=== PATIENT | male | born 1955 | race Caucasian/White ===

== ENCOUNTER 2024-01-12 09:45 | Observation (INO) ==
--- NOTE | 2024-01-10 10:01 | Anesthesiology Consultation ---
Date of Service January 10, 2024 Assessment & Plan (1) Encounter for pre-operative examination: Infectious disease screening: Per assessment on 01/02/24: No known recent infectious disease contacts or current infectious disease symptoms. Patient at [facility]. Will need preop Covid testing per protocol. Chart Review Chart Review: Acceptable Risk for Surgery and Patient NOT seen in Pre Admission Testing History Surgery Operation Date: 01/12/24 07:35 Proposed Procedures p Robotic Assisted Laparoscopic Radical Retropubic Prostatectomy, Possible Open, Possible Pelvic Lymph Node Dissection - Ruel Saravia, Height/Weight Height: 5 ft 11 in Weight: 72.121 kg Allergies Allergy/AdvReac Type Severity Reaction Status Date / Time No Known Drug Allergies Allergy Unknown Verified 01/02/24 14:32 Medications Home Medications Medication Instructions Recorded Confirmed Last Taken finasteride 5 mg tablet 5 mg PO DAILY 04/25/23 01/02/24 Unknown olanzapine 5 mg tablet 5 mg PO HS 04/25/23 01/02/24 Unknown oxcarbazepine 150 mg tablet 150 mg PO BID 04/25/23 01/02/24 Unknown paroxetine HCl 10 mg tablet 30 mg PO DAILY 04/25/23 01/02/24 Unknown tamsulosin 0.4 mg capsule 0.4 mg PO HS 04/25/23 01/02/24 Unknown leuprolide (pediatric 6 month) 45 45 mg IM UD 01/02/24 01/02/24 Unknown mg (pediatric 6 month) intramuscular syringe kit (Lupron Depot-Ped) Past Medical History Medical History Adjustment disorder with mixed anxiety and depressed mood Prostate cancer Past Family History Family History Father No problems noted. Mother Breast cancer Brother No problems noted. Sister No problems noted. Son No problems noted. 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 iRBBB. unconfirmed report. Chest X-Ray Date: 01/04/24 Old rib deformities on the left. No radiographic evidence of acute cardiopulmonary disease.
--- NOTE | 2024-01-12 09:53 | History & Physical Report ---
Date of Service January 12, 2024 Assessment & Plan (1) Prostate cancer: Plan Patient with prostate cancer. Found on biopsy. High volume disease. Patient has been evaluated by radiation oncology. Had discussed extensively different options. Reviewed extensively options for surgical intervention and recovery. Risks and benefits discussed at length for procedure. These include bleeding, infection, injury to surrounding tissues or organs, and risks associated with anesthesia. Patient states understanding and agrees to proceed. Will sign consent and proceed. Plan for Robot Assisted laparoscopic radical prostatectomy with bilateral pelvic lymph node dissection Likely need 1 to 2 days post op under observation. Will be looking at catheter for approximately 10 to 14 days after procedure. History of Present Illness Primary Care Provider: NICK Melara Patient here for procedure. No changes in medical issues. No major changes in urinary issues. Continued issues and concerns. No change in pain or discomfort. No severe fevers or chills. No chest pain or shortness of breath. Risks and benefits discussed at length for procedure. These include bleeding, infection, injury to surrounding tissues or organs, and risks associated with anesthesia. Patient and/or family states understanding and agrees to proceed. Consent and supporting information completed. Allergies Allergy/AdvReac Type Severity Reaction Status Date / Time No Known Drug Allergies Allergy Unknown Verified 01/02/24 14:32 Home Medications Medication Instructions Recorded Confirmed Type finasteride 5 mg tablet 5 mg PO DAILY 04/25/23 01/02/24 History olanzapine 5 mg tablet 5 mg PO HS 04/25/23 01/02/24 History oxcarbazepine 150 mg tablet 150 mg PO BID 04/25/23 01/02/24 History paroxetine HCl 10 mg tablet 30 mg PO DAILY 04/25/23 01/02/24 History tamsulosin 0.4 mg capsule 0.4 mg PO HS 04/25/23 01/02/24 History leuprolide (pediatric 6 month) 45 45 mg IM UD 01/02/24 01/02/24 History mg (pediatric 6 month) intramuscular syringe kit (Lupron Depot-Ped) Past Med/Surg History Problem List Encounter for pre-operative examination Medical History Prostate cancer Adjustment disorder with mixed anxiety and depressed mood Surgical History Surgical history unknown Family History Father No problems noted. Mother Breast cancer Brother No problems noted. Sister No problems noted. Son No problems noted. 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 No Acute illness. . HEENT: Inspection normal. Normal inspection of face. Normal inspection of neck. Psychologic: Normal affect/No change in mentation. Respiratory: No use of accessory muscles. No respiratory changes or exacerbation or changes with tachypnea or dyspnea. Cardiovascular: No tachycardia Skin: Dish and Dry. No new rashes or visible lesions. Abdomen: Normal inspection. No guarding. PG Care Time/CCT Total # of Minutes Spent Total Time Spent with Patient: Total time spent is greater than 50% in coordination of care (as documented) at patient's floor/unit and/or counseling patient: Coding Level of Care Code None Diagnoses Prostate cancer C61
[2024-01-12] MEDS ORDERED: ePHEDrine sulfate 50 MG/ML AMP IV PRN (10:33)
[2024-01-12] MEDS ORDERED: PROMETHAZINE HCL 6.25 MG in SODIUM CHLORIDE 0.9% 50 ML IV PRN (10:33)
[2024-01-12] MEDS ORDERED: ATROPINE SULFATE 0.1 MG/ML 10ML SYR IV PRN (10:33)
[2024-01-12] MEDS ORDERED: HYDROmorphone INJ 2 MG/ML SYR/VIAL IV PRN (10:33)
[2024-01-12] MEDS: LR 15ML/HR IV SCH (10:42)
[2024-01-12] MEDS: HEPARIN SOD 5,000 UNIT/0.5 ML VIAL SQ SCH ×2 (10:45→20:05)
[2024-01-12] MEDS ORDERED: MIDAZOLAM HCL 1 MG/ML 2ML VIAL ONE (11:44)
[2024-01-12] MEDS ORDERED: fentaNYL citrate PF 100 MCG/2 ML VIAL ONE ×2 (11:44→14:41)
[2024-01-12] MEDS ORDERED: LIDOCAINE 2% 2 ML VIAL/AMP(20MG/ML) INFIL ONE (12:27)
[2024-01-12] MEDS ORDERED: ePHEDrine sulfate 50 MG/ML AMP ONE (12:27)
[2024-01-12] MEDS ORDERED: ROCURONIUM BROMIDE 10 MG/ML 5 ML VIAL IV ONE ×2 (12:27→13:01)
[2024-01-12] MEDS ORDERED: DEXAMETHASONE SOD INJ 4 MG/ML VIAL ONE (12:27)
[2024-01-12] MEDS ORDERED: PROPOFOL IV EMULSION 10 MG/ML 20 ML VIAL IV ONE (12:27)
[2024-01-12] MEDS ORDERED: GLYCOPYRROLATE 0.2 MG/ML VIAL ONE ×2 (12:28→14:39)
[2024-01-12] MEDS ORDERED: KETAMINE HCL 10MG/ML SYR ONE (12:30)
[2024-01-12] MEDS: ceFAZolin 2000MG 2,000 MG/15 ML SYR IV SCH ×2 (12:32→20:04)
[2024-01-12] MEDS: FLOSEAL HEMOSTATIC MATRIX 10ML TOP ONE (13:45)
[2024-01-12] MEDS: VANCOMYCIN HCL 1000MG/20ML VIAL ONE (14:17)
[2024-01-12] MEDS: SURGICEL ABSORB HEMOSTAT 2IN X 14IN TOP ONE (14:18)
[2024-01-12] MEDS ORDERED: ONDANSETRON INJ 2 MG/ML 2 ML VIAL ONE (14:38)
[2024-01-12] MEDS ORDERED: NEOSTIGMINE METHYLSULFATE 1 MG/ML 10ML VIAL ONE (14:39)
[2024-01-12] MEDS: BUPIVACAINE 0.5 % 5 MG/1 ML MPF 30ML VIAL ONE (14:40)
--- NOTE | 2024-01-12 14:55 | Operative Report ---
PG Post Operative Report Pre & Post Diagnosis Operation Date: 01/12/24 11:50 Pre-Op Diagnosis: Prostate Cancer, Elevated PSA Post-Op Diagnosis: Prostate Cancer, Elevated PSA I identified the patient and participated in the time-out.: Yes Procedure Operation Date: 01/12/24 11:50 Actual Procedures p Robotic Assisted Laparoscopic Radical Retropubic Prostatectomy, Bilateral Pelvic Lymph Node Dissection(Not Applicable) - Ruel Saravia DO Surgeon Ruel Saravia, II, DO [employer] Izzy CASSIDY Estimated Blood Loss 50 Findings Consistent with Post-Op Diagnosis Specimens Prostate and Seminal Vesicle Left Pelvic Lymph Nodes Right Pelvic Lymph Nodes. Drains 18 Fr Silicon Miranda catheter. Anesthesia Type General Complications none Disposition Disposition: Recovery Room Indications Patient with Prostate Cancer. Risk and benefits were discussed at length. Patient elected to undergo robotic assisted laparoscopic Radical Prostatectomy. Description of Procedure The patient was brought to the operative suite and placed under general endotracheal intubation anesthesia in the supine position. The patient was transferred to the dorsal lithotomy position. At this point, the patient prepped and draped in the usual sterile fashion and a timeout was completed. Preoperative antibiotics of Ancef 2 grams had been given. SALOME's and SCD's were placed on the patient's lower extremities. A catheter was placed using sterile technique. With the time out completed the patient was placed into Trendelenburg and the skin at the umbilicus was anesthetized. A small incision was made superior to the umbilicus. A Varess Needle was placed and confirmed to be in the abdominal cavity. Water drop test passed. The Abdominal cavity was insufflated to 15 mmHG. The camera port was then placed. A laparoscopic camera was placed into the port and the abdominal cavity inspected. No concerning features were noted. At this point, the skin was marked for port placement and 8mm working ports were placed. The skin was anesthetized down to fascia and an approx 1cm incision was made to place the 3 x 8mm ports. A 12mm and 5 mm technical assistant ports were also placed in similar fashion under direct visualization. The patient was transferred into steep Trendelenburg position and the legs lowered. The robot was positioned and docked. The camera was placed and all trocars were positioned under direct visualization. Izzy CASSIDY was integral in port placement, camera utilization, and docking procedure. She remained in sterile attire and then proceeded to assist the remainder of the case. At this point, I transitioned to the robotic console. At this point, the sigmoid colon was mobilized superiorly and the pelvis assessed. Adhesions were freed to allow mobilization. The peritoneum in the midline was opened between rectum and bladder and the vas deferens and seminal vesicles exposed. These were dissected with blunt technique. The vas was clipped and cut and mobilized. Cautery was used to assist dissection avoiding the tissue posteriorly near the rectum. The tissues lateral to the seminal vesicles were clipped with a hemolock and all bleeding controlled. This was taken as inferior as possible from this position. The medial umbilical ligaments were then identified and the peritoneum directly lateral on the right followed by the left was opened. The tissues were bluntly dissected to free the bladder's lateral attachments. This was taken down to the pubic bone and exposed the endopelvic fascia bilaterally. The medial ligaments were cut and the bladder dropped. The tissues was dissected anterior to the prostate. The endopelvic fascia on each side was then opened and the lateral edges of the prostate dissected. The Dorsal venous complex of the prostate was dissected and assessed. A 2-0 PDS suture was used to ligate the vessels. A suspension stitch was used and clipped. Electrocautery was used to cut the anterior attachments, the puboprostatic ligaments, and venous tissues. The miranda was manipulated to better visual the bladder neck and dissection was taken using electrocautery. The bladder neck was opened and dissected from the prostate. The UO were identifed and dissection taken in a direction to avoid each side. The vas stump and seminal vesicles were exposed and used to assist in traction to dissect. The prostatic pedicles were better exposed. The posterior prostate was dissected. An attempt was made to limit cautery and utilize cold dissection of the lateral posterior prostate to attempt preservation of the neurovascular bundle bilaterally. Hemolock clips were utilized to clip the prostatic pedicle bilaterally. The dissection was taken to the apex of the prostate. The anterior prostate was released and the urethra exposed. Cold cutting was used to open the anterior portion and expose the catheter. This was removed and the urethra incised. The prostate was further freed and grasped and removed from the field. The entire dissection bed was inspected.Hemostatic agent was placed in the region. No areas of injury or bleeding was noted. Care was taken to examine the perirectal tissues. A probe was placed and no injuries or other issues were observed. A 1-0 Vicryl suture was used to close the tissue over. The bladder neck and urethra were then approximated with a running 1-0 barbed suture starting at the 5 o'clock position and moving to the 12 o'clock on each side. This was tied at the anterior portion. A leak test was completed without any evidence of issues. The 1-0 vicryl was then used to close the upper edge of the bladder with an interrupted stitch. The right and left pelvic lymph tissue was identified in relation to the iliac vessels. Distal dissection was taken to the Node of Moises. Inferiorly the obtorator vessels and nerve were identified. Lymphatic tissue within the surround fat tissue was dissected. This packet of tissues were sent for pathologic analysis and lymph node assessment. This was done for each separate side. Hemostatic agent was placed on the exposed vessels. The entire dissection space was inspected one final time. No bleeding or injuries or areas of concern were noted. No tumor or other concerning features were noted. At this point, the robot was undocked and moved away from the patient. The patient was taken out of Trendelenberg. The port sites were all assessed laparoscopically. The endoscopic bag was moved into the midline port. The 12 mm port site was closed with the Alexys Parker device. The other ports were assessed and no issues observed. The umbilical incision was opened further exposing fascia which was then opened in order to removed the prostate in the bag. The prostate was removed. A running PDS suture was used to close fascia. The skin at each site was closed Surgical cassy. The area was cleaned and bandages placed on each incision. The patient was cleaned and bandaged, aroused from anesthesia, and transferred to the pacu in stable condition having tolerated the procedure well with no complications. I was present and participated in all aspects of the procedure. Izzy CASSIDY was critical in the portions as mentioned above. Will plan to observe postoperatively and monitor. Miranda to be remain in place until followup. Will discuss pathology at followup in approx 2 weeks. I attest to the content of the Intraoperative Record and any orders documented therein. Any exceptions are noted below.
--- NOTE | 2024-01-12 15:42 | Anesthesiology Progress Note ---
Date of Service January 12, 2024 Anesthesia Post Procedure Vital Signs Vital Signs: Temp Pulse Pulse Resp BP Pulse Ox O2 Del Method 01/12/24 15:30 64 18 109/64 100 Oxymask 01/12/24 15:20 62 17 99/61 L 100 Oxymask 01/12/24 15:10 63 16 97/62 L 100 Oxymask 01/12/24 15:03 36.2 C L 64 15 92/57 L 100 Oxymask 01/12/24 10:32 36.7 C 52 L 18 134/83 99 Room Air O2 Flow Rate 01/12/24 15:30 2 01/12/24 15:20 4 01/12/24 15:10 6 01/12/24 15:03 6 01/12/24 10:32 Transfer of Care Handoff Completed per policy Notes Mental Status: alert / awake / arousable Patient Amnestic to Procedure: Yes Nausea / Vomiting: adequately controlled Pain: adequately controlled Airway Patency, RR, SpO2: stable & adequate BP & HR: stable & adequate Hydration State: stable & adequate Anesthetic Complications: no major complications apparent and Pt Satisfied with anesthetic care
[2024-01-12] MEDS ORDERED: oxyCODONE HCL IR 5 MG TAB (IMMEDIATE RELEASE) PO PRN (16:58)
[2024-01-12] MEDS ORDERED: MoRPHine SULFATE 4 MG/ML 1 ML CARP\\VIAL IV PRN (16:58)
[2024-01-12] MEDS ORDERED: MoRPHine SULFATE 2 MG/ML CARP IV PRN (16:58)
[2024-01-12] MEDS: LACTATED RINGER'S 1,000 ML IV SCH (17:09)
[2024-01-12] MEDS: ACETAMINOPHEN 325 MG TAB PO SCH (17:25)
[2024-01-12] MEDS: SODIUM CHLORIDE 0.9% 1,000 ML IV SCH (17:25)
[2024-01-12 17:53] LABS: Hematocrit (blood only) 32.1 % (42.0-52.0); Hemoglobin 11.1 g/dl (14.0-18.0); Mean Corpuscular Hemoglobin 30.2 pg (25.0-34.0); Mean Corpuscular Hgb Conc 34.6 g/dL (32.0-36.0); Mean Corpuscular Volume 87.5 fL (80.0-100.0); Mean Platelet Volume 11.8 fL (9.4-12.4); Platelet Count 124 K/uL (130-400); RDW Coefficient of Variation 12.5 % (11.5-14.5); RDW Standard Deviation 39.9 fL (36.4-46.3); Red Blood Count 3.67 M/uL (4.70-6.10)
[2024-01-12 18:06] LABS: BUN Creatinine Ratio 17.4 (10-20); Calcium 8.7 mg/dl (8.6-10.3); Creatinine Clr Calc Pharmacy 78.1 ml/min; Est GFR (Non-African American) 84.6 ml/min; Potassium 3.6 mmol/L (3.5-5.1)
[2024-01-12 18:29] LABS: Basophils # (auto) 0.01 K/uL (0.00-0.20); Basophils % (auto) 0.1 %; Immature Granulocytes # (auto) 0.09 K/uL (0.01-0.20); Immature Granulocytes % (auto) 0.7 %; Lymphocytes # (auto) 0.59 K/uL (1.20-3.40); Lymphocytes % (auto) 4.5 %; Monocytes % (auto) 3.1 %; Neutrophils # (auto) 11.91 K/uL (1.40-6.50); Neutrophils % (auto) 91.6 %; RBC Morphology Unremarkable
[2024-01-12] MEDS: OXcarbazepine 150 MG TABLET PO SCH (20:05)
[2024-01-12] MEDS: DOCUSATE SODIUM 100 MG CAP PO SCH (20:06)
[2024-01-12] MEDS: OLANZapine 5 MG TABLET PO SCH (20:06)
[2024-01-12 23:18] VITALS: TEMP 98.8
[2024-01-13] MEDS: ONDANSETRON INJ 2 MG/ML 2 ML VIAL IV PRN (02:51)
[2024-01-13 02:57] VITALS: PULSE 67; O2SAT 96
[2024-01-13 06:51] LABS: Basophils # (auto) 0.02 K/uL (0.00-0.20); Basophils % (auto) 0.1 %; Hematocrit (blood only) 28.7 % (42.0-52.0); Immature Granulocytes # (auto) 0.06 K/uL (0.01-0.20); Immature Granulocytes % (auto) 0.4 %; Lymphocytes # (auto) 1.62 K/uL (1.20-3.40); Lymphocytes % (auto) 11.7 %; Mean Corpuscular Hemoglobin 30.2 pg (25.0-34.0); Mean Corpuscular Hgb Conc 34.8 g/dL (32.0-36.0); Mean Corpuscular Volume 86.7 fL (80.0-100.0); Mean Platelet Volume 12.2 fL (9.4-12.4); Monocytes # (auto) 1.36 K/uL (0.11-0.59); Monocytes % (auto) 9.8 %; Neutrophils # (auto) 10.83 K/uL (1.40-6.50); Platelet Count 128 K/uL (130-400); RDW Coefficient of Variation 12.5 % (11.5-14.5); RDW Standard Deviation 39.5 fL (36.4-46.3); Red Blood Count 3.31 M/uL (4.70-6.10); White Blood Count 13.89 K/ul (4.8-10.8)
[2024-01-13 07:27] LABS: Calcium 8.6 mg/dl (8.6-10.3)
[2024-01-13 07:41] LABS: BUN Creatinine Ratio 15.6 (10-20); Creatinine Clr Calc Pharmacy 79.9 ml/min; Est GFR (African American) 100.6 ml/min; Est GFR (Non-African American) 86.8 ml/min
--- NOTE | 2024-01-13 08:05 | Urology Progress Note ---
Date of Service January 13, 2024 Assessment & Plan (1) Prostate cancer: Plan: 68 yo/M POD #1 s/p Robotic Laparoscopic-Assisted Radical Retropubic Prostatectomy with Dr. Saravia. - Doing well, progressing as expected - Afebrile, post op lab work reviewed and as expected - Minimal pain - Tolerating clear liquid diet - will advance diet and d/c IV fluids - Encouraged ambulation - Incisions appropriate - Bhakta catheter intact, patent and draining clear urine with minimal blood- tinged sediment - Maintain Bhakta catheter upon discharge - Expected clinical course reviewed, all questions answered - Anticipate discharge to [facility] later today or tomorrow if he continues to progress as expected - Plan for staple removal in 7-10 days - Will arrange post-operative follow-up with our service Admission and Anticipated Discharge Date Admission Date: January 12, 2024 Subjective Patient seen and examined at bedside this morning. 2 guards present at bedside. No acute issues overnight. Tolerating clear liquid diet. No nausea or vomiting. Reports mild discomfort at incisions. Pain is controlled with scheduled Tylenol. Denies fever or chills. Bhakta intact. Review of Systems Constitutional: as per Subjective / HPI Gastrointestinal: as per Subjective / HPI Genitourinary: + as per Subjective / HPI Physical Exam Constitutional: no acute distress Respiratory: no respiratory distress and no labored breathing Gastrointestinal (Abdomen): Inspection/Auscultation: abdomen not distended Percussion/Palpation: abdomen soft; abdomen nontender Skin: Incisions C/D/I with cassy. Mild ecchymoses of midline incision and right lateral incision. Neurologic: moves all extremities and awake Psychiatric: Orientation: alert and oriented x 3 Genitourinary: Bhakta patent and draining clear yellow urine with some blood-tinged sediment in tubing Results & Data Vital Signs (Past 12 Hours) Vital Signs Temp Pulse Resp BP Pulse Ox O2 Del Method 01/13/24 02:56 37.1 C 67 14 117/65 96 Room Air 01/12/24 23:17 37.1 C 73 16 126/69 97 Room Air 01/12/24 20:00 Room Air PG Care Time/CCT Total # of Minutes Spent Total Time Spent with Patient: Total time spent is greater than 50% in coordination of care (as documented) at patient's floor/unit and/or counseling patient: Coding Level of Care Code None Diagnoses Prostate cancer C61
[2024-01-13] MEDS: PARoxetine HCL 10 MG TAB PO SCH (09:05)
[2024-01-13] MEDS: oxyCODONE HCL IR 5 MG TAB (IMMEDIATE RELEASE) PO PRN (09:10)
[2024-01-13 10:23] VITALS: RESP 17
[2024-01-13 12:55] VITALS: BP 114/60
--- NOTE | 2024-01-13 13:57 | Discharge Summary ---
Date of Service January 13, 2024 Admission HPI Per Admitting Provider Patient here for procedure. No changes in medical issues. No major changes in urinary issues. Continued issues and concerns. No change in pain or discomfort. No severe fevers or chills. No chest pain or shortness of breath. Risks and benefits discussed at length for procedure. These include bleeding, infection, injury to surrounding tissues or organs, and risks associated with anesthesia. Patient and/or family states understanding and agrees to proceed. Consent and supporting information completed. Admission Exam Per Admitting Provider General: Alert/Arousable. No Acute illness. . HEENT: Inspection normal. Normal inspection of face. Normal inspection of neck. Psychologic: Normal affect/No change in mentation. Respiratory: No use of accessory muscles. No respiratory changes or exacerbation or changes with tachypnea or dyspnea. Cardiovascular: No tachycardia Skin: [place] and Dry. No new rashes or visible lesions. Abdomen: Normal inspection. No guarding. Principal Diagnosis Prostate cancer Discharge Exam Constitutional no acute distress Respiratory no respiratory distress and no labored breathing Gastrointestinal (Abdomen) Inspection/Auscultation: abdomen not distended Percussion/Palpation: abdomen soft; abdomen nontender Neurologic moves all extremities and awake Psychiatric Orientation: alert and oriented x 3 Discharge Data Allergies Allergy/AdvReac Type Severity Reaction Status Date / Time No Known Drug Allergies Allergy Unknown Verified 01/12/24 10:09 Procedures Performed Operation Date: 01/12/24 11:50 Actual Procedures p Robotic Assisted Laparoscopic Radical Retropubic Prostatectomy, Bilateral Pelvic Lymph Node Dissection(Not Applicable) - Ruel Saravia, DO Hospital Course (1) Prostate cancer: 68 yo/M POD #1 s/p Robotic Laparoscopic-Assisted Radical Retropubic Prostatectomy with Dr. Saravia. - Doing well, progressing as expected - Afebrile, post op lab work reviewed and as expected - Minimal pain - Tolerating clear liquid diet - will advance diet and d/c IV fluids - Encouraged ambulation - Incisions appropriate - Bhakta catheter intact, patent and draining clear urine with minimal blood- tinged sediment - Maintain Bhakta catheter upon discharge - Expected clinical course reviewed, all questions answered - [facility] or tomorrow if he continues to progress as expected - Plan for staple removal in 7-10 days - Will arrange post-operative follow-up with our service Total Time Total Time Spent Total Time Spent (In Minutes): 20 Discharge Plan Discharge Items [facility] Disposition[facility] Reason For Visit: Prostate Cancer, Elevated PSA Discharge Diagnosis: Prostate Cancer, Elevated PSA Activity: Per Instructions section Lifting: No more than 25 pounds Bathing Comment: Okay to shower after discharge, no tub bath or soaking Exercise/Sports: Wait until after follow-up appointment Non-emergency contact: Urologist Call non-emergency contact if: your pain is not controlled, your temperature is above 101, your wound has increased redness, your wound has increased drainage and your wound pain has increased Follow-up/Referrals: Saritha ROMERO [Primary Care Provider] - Diet: Regular Addtl Attending Provider Instructions: Please take all medications as prescribed and keep all follow-ups as scheduled. Please call our office at [phone] with any questions, concerns or need to reschedule appointments for any reason. We are happy to assist you. Remove cassy in 7-10 days Remove Bhakta catheter in 7-10 days Activity: We recommend having someone with you for the first few days after surgery to help care for you. For the first 2 weeks after surgery, we would like you to get up and walk around your house. However, we recommend limit physical activity that would increase your heart rate. This will allow your body to rest and heal. Take naps if you feel tired. Don't lift anything heavier than 10 pounds, mow the law or ride a bicycle until your follow-up appointment. Please avoid long car rides. Home Care: Unless directed otherwise, drink 6 to 8 glasses of water a day (enough to keep your urine light colored). This will also help keep a healthy flow of urine. We recommend using a stool softener for the first two weeks to avoid constipation. Bhakta Catheter or Suprapubic Catheter care: Keep the catheter well secured with either a leg back or leg strap with large bag. Empty your bag when it's about half full. You may notice some blood in the bag. This is normal after surgery and while the catheter is in place. Use mild soap (such as Dove or Dial) and water to wash the catheter and the head of your penis daily, or more frequently if needed. Return to your normal diet, we encourage good protein intake to promote healing. You may shower as normal. Please avoid tub baths or soaking until catheter removed and incisions well healed. Wearing sweat pants while you have the catheter is recommended, they will be more comfortable. Follow-up * We will schedule you a follow-up for pathology review Call [facility] at [phone] right away if you have any of the following: Chest pain or trouble breathing (call 911 or go to the hospital) Fever of 101F or higher, uncontrolled vomiting Heavy bleeding, clots, or bright red blood from the catheter Catheter that falls out or stops draining Foul-smelling discharge from your catheter Redness, swelling, warmth, or increased pain at your incision site Drainage, pus, or bleeding from your incision Pending Studies at Discharge: Yes (pathology) Skilled Items Patient informed of condition?: Yes Discharge Level of Care: Other Communicable Disease: No Discharge Prognosis: Stable Lines: None Urinary Catheter: Yes Medications and DC Order Prescriptions: Continued paroxetine HCl 10 mg tablet 30 mg PO DAILY Patient Comments: take 3 tablets orally once daily per faxed info. 10 mg per tab per faxed info. oxcarbazepine 150 mg tablet 150 mg PO BID olanzapine 5 mg tablet 5 mg PO HS Lupron Depot-Ped 45 mg Syringe Kit 45 mg IM UD Patient Comments: per faxed info: inject 45 mg im once daily (tx) on dates 10/06/23 and 04/05/24. Discontinued tamsulosin 0.4 mg capsule 0.4 mg PO HS finasteride 5 mg tablet 5 mg PO DAILY Discharge Orders: Discharge Order (Routine); Ordered 01/13/24 Ordered By: Abiola Magana Admission Data Admit Date/Time: 01/12/24 14:51 Attending Provider: Ruel Saravia Admit Provider: Ruel Saravia Primary Care Provider: Saritha ROMERO Other Interventions: Discharge Summary Assessment (RN) Last Done: 01/13/24 12:54 Coding Level of Care Code 48875 IN/OBS DISCH 30 MIN/LESS Diagnoses Prostate cancer C61
== END 2024-01-13 14:46 ==
LOC: ASU 09:45 → 3E 14:51 → INTOOBSV 14:51

== ENCOUNTER 2024-08-30 07:15 | Observation (INO) ==
[2024-08-30 07:42] LABS: Basophils # (auto) 0.02 K/uL (0.00-0.20); Basophils % (auto) 0.1 %; Eosinophils # (auto) 0.14 K/uL (0.00-0.50); Hematocrit (blood only) 43.8 % (42.0-52.0); Hemoglobin 14.8 g/dl (14.0-18.0); Immature Granulocytes # (auto) 0.05 K/uL (0.01-0.20); Immature Granulocytes % (auto) 0.4 %; Lymphocytes # (auto) 0.72 K/uL (1.20-3.40); Lymphocytes % (auto) 5.1 %; Mean Corpuscular Hemoglobin 29.8 pg (25.0-34.0); Mean Corpuscular Hgb Conc 33.8 g/dL (32.0-36.0); Mean Corpuscular Volume 88.1 fL (80.0-100.0); Mean Platelet Volume 11.8 fL (9.4-12.4); Monocytes % (auto) 5.6 %; Neutrophils # (auto) 12.47 K/uL (1.40-6.50); Neutrophils % (auto) 87.8 %; Platelet Count 155 K/uL (130-400); RDW Coefficient of Variation 12.3 % (11.5-14.5); RDW Standard Deviation 39.8 fL (36.4-46.3); Red Blood Count 4.97 M/uL (4.70-6.10)
--- NOTE | 2024-08-30 07:45 | Emergency Department Note ---
Impression & Plan Syncope and collapse, CHI (closed head injury) ED Provider Note NAME: BEBA [id number] GARRETT AGE: 68 SEX: Male INFORMANT: Patient EMS ED PROVIDER(S): Horacio Mcgarry MD CHIEF COMPLAINT: Syncope PLAN: Disposition: Admitted Outpatient prescription management: none Referral: None MEDICAL DECISION MAKING: patient presented with a syncopal episode. Patient had 1 episode of diarrhea that was described as nonbloody. He had a benign physical examination. He was hydrated. Patient underwent a workup. Because he hit his head CT scan was performed and this was negative for traumatic findings. CT scan of the chest was also done to rule out PE or other process. Patient does not have any pulmonary symptoms to suggest pneumonia. No pulmonary emboli were noted. Mass noted. Patient had orthostatic testing performed and this was positive. Initially discussed possible discharge with the intermediate staff however the patient was still orthostatic. He did have a second loose bowel movement here. Given this finding further evaluation management in the hospital is felt to be appropriate. Consultation was made to [facility] service. Patient was evaluated in the ER and admitted for further management. Care/management discussed with: bindery manager, correctional facility [facility] staff Level of care consideration(s): After review of the information above and other included data, I feel the patient because escalation of care to admission Triage Nursing notes: reviewed and agree them. Vital Signs: reviewed and remarkable for no significant abnormalities Additional History obtained from: Residential guards Chronic Medical/Social Conditions affecting care: History of prostate cancer Prior/ Outside/ External records reviewed: Hospital admission from October 2023 reviewed. Patient had a radical prostatectomy. Uneventful. Patient also referred for radiation oncology. Differential Diagnosis: Vasovagal event, dehydration, infection, hypoglycemia, electrolyte abnormalities, cardiac sources, intracerebral event, pulmonary embolism, seizure, toxicologic, neurologic, as well as other pathologies. Diagnostics, independently interpreted by me: ECG: Twelve-lead ECG reveals normal sinus rhythm at 64 beats per minute. Incomplete right bundle branch block. No evidence of pericarditis, ischemia, ectopy, or dysrhythmia. Cardiac Monitoring: Cardiac monitoring: The patient was placed on continuous cardiac monitoring and observed. It revealed a normal sinus rhythm at 67 beats per without ectopy or evidence of dysrhythmia. Medical decision rules: None Imaging studies: Head CT: A noncontrast CT scan of the head was performed and was negative for tumor, fracture, intracranial hemorrhage, or other acute pathology. CT scan of the chest is negative for pulmonary emboli. Chest x-ray. Findings: A chest x-ray was performed and revealed no pneumothorax, effusion, infiltrate, pulmonary edema, free air under the diaphragm, or wide mediastinum. Impression: No acute disease. HPI: 68 year old Male arrives for evaluation of syncope. Patient states he woke up and went to use the bathroom. He states he was feeling fine yesterday and today. When he tried to get up he felt very weak. He stood up and had a syncopal episode. He did strike the back of his head. Present guards noted that he was incontinent of brown stool. Patient denies any recent diarrhea or other illness. Staff attended to the patient and noted his initial blood pressure was 90 systolic. No issues for EMS transport. Patient has no complaints at this time. Pt denies headache, fevers, chills, diaphoresis, visual changes, neck pain, chest pain, breathing difficulties, nausea, vomiting, abdominal pain, back pain, melena, hematochezia, urinary symptoms, numbness, lymphadenopathy, rash, or other complaints. PAST MEDICAL HISTORY: See Below, prostate cancer PAST SURGICAL HISTORY: See Below, prostatectomy SOCIAL HISTORY: See Below, incarcerated HOME MEDICATIONS: See Below ALLERGIES: See Below VITALS: See Below PHYSICAL EXAMINATION: GENERAL: Awake, alert, well-appearing, in no distress HENT: Normocephalic, atraumatic in appearance. No lacerations. Oropharynx unremarkable. EYES: Mildly pale conjunctiva. Sclera non-icteric. PERRLA. NECK: Inspection normal. Non-tender. Supple. No nuchal rigidity. FROM. No masses. RESPIRATORY: Clear to auscultation. No wheezes. No rales. Normal respiratory effort. CARDIAC: Normal rate. Normal rhythm. No murmurs. No rubs. Extremities warm and well perfused. Pulses equal. No JVD. GI: Soft, non-distended. No tenderness to palpation. No rebound or guarding. No masses. RECTAL: Deferred. MUSCULOSKELETAL: Atraumatic. Chest examination reveals no tenderness. The back is symmetrical on inspection without obvious abnormality. There is no CVA tenderness to palpation. No joint edema. LOWER EXTREMITIES: Calves are equal size bilaterally and non-tender. No edema. Chronic venous discoloration. NEURO: Normal sensorium. No sensory or motor deficits noted. SKIN: No rash or jaundice noted. PROCEDURES: none CRITICAL CARE: none OBSERVATION NOTE: none Past Med/Surg History Problem List History of prostate cancer Mediastinal mass Gastroenteritis due to norovirus Vasovagal syncope Incontinence Diarrhea Adjustment disorder with mixed anxiety and depressed mood Status post prostatectomy Syncope and collapse (Acute) Medical History Prostate cancer Surgical History Surgical history unknown Family History Father No problems noted. Mother Breast cancer Brother No problems noted. Sister No problems noted. Son No problems noted. 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 Preferred Language: Kazakh Communication Ability: Effective Visual Impairment: Limited Hearing Ability: Normal Physicians And Surgeons Required: No Beliefs That Will Affect Care: None Current Living Situation: Other Current Living Situation Comment: inmate Feels Safe at Home: Yes Diet: regular during the past year weight has: remained stable Assistive Devices: None Allergies Allergies Allergy/AdvReac Type Severity Reaction Status Date / Time No Known Drug Allergies Allergy Unknown Verified 08/30/24 09:41 Home Meds Home Medications Medication Instructions Recorded Confirmed olanzapine 5 mg tablet 5 mg PO HS 04/25/23 08/30/24 paroxetine HCl 10 mg tablet 30 mg PO DAILY 04/25/23 08/30/24 leuprolide (pediatric 6 month) 45 45 mg IM UD 01/02/24 08/30/24 mg (pediatric 6 month) intramuscular syringe kit (Lupron Depot-Ped) Results & Data (ED) Vital Signs Vital Signs - 24 hr 08/30/24 15:44 08/30/24 15:56 08/30/24 16:00 Temperature Temperature Source Pulse Rate 68 65 Pulse Rate [Apical] Pulse Rate [Finger] Pulse Rate from SpO2 Sensor 68 65 Pulse Rhythm [Apical] Pulse Strength [Apical] Respiratory Rate 23 19 Respiratory Effort / Characteristics Respiratory Depth Respiratory Pattern Blood Pressure 144/81 H Blood Pressure [Right Arm] Blood Pressure Mean 106 Blood Pressure Mean [Right Arm] Blood Pressure Position [Right Arm] Pulse Oximetry 99 99 Oxygen Delivery Method EWS Level of Consciousness - Last Result EWS Temperature - Last Result EWS Respiratory Rate - Last Result EWS Oxygen Saturation - Last Result EWS Oxygen in Use - Last Result EWS Score EWS Clinical Risk 08/30/24 16:16 08/30/24 18:03 08/30/24 18:15 Temperature 36.6 C Temperature Source Oral Pulse Rate 71 Pulse Rate [Apical] 64 Pulse Rate [Finger] Pulse Rate from SpO2 Sensor Pulse Rhythm [Apical] Regular Pulse Strength [Apical] Normal Respiratory Rate 16 Respiratory Effort / Characteristics Non-Labored Spontaneous Non-Labored Spontaneous Respiratory Depth Normal Normal Respiratory Pattern Regular Regular Blood Pressure Blood Pressure [Right Arm] 153/79 H Blood Pressure Mean Blood Pressure Mean [Right Arm] 103 Blood Pressure Position [Right Arm] Lying Pulse Oximetry 98 Oxygen Delivery Method Room Air Room Air EWS Level of Consciousness - Last Result EWS Temperature - Last Result EWS Respiratory Rate - Last Result EWS Oxygen Saturation - Last Result EWS Oxygen in Use - Last Result EWS Score EWS Clinical Risk 08/30/24 18:25 08/30/24 21:10 08/30/24 21:50 Temperature Temperature Source Pulse Rate 65 71 Pulse Rate [Apical] Pulse Rate [Finger] Pulse Rate from SpO2 Sensor Pulse Rhythm [Apical] Pulse Strength [Apical] Respiratory Rate Respiratory Effort / Characteristics Respiratory Depth Respiratory Pattern Blood Pressure Blood Pressure [Right Arm] Blood Pressure Mean Blood Pressure Mean [Right Arm] Blood Pressure Position [Right Arm] Pulse Oximetry Oxygen Delivery Method EWS Level of Consciousness - Last Result Spontaneously Alert EWS Temperature - Last Result 36.6 EWS Respiratory Rate - Last Result 16 EWS Oxygen Saturation - Last Result 98 EWS Oxygen in Use - Last Result No EWS Score 0 EWS Clinical Risk Low Risk 08/30/24 22:29 08/30/24 23:10 08/30/24 23:11 Temperature 37 C Temperature Source Oral Pulse Rate Pulse Rate [Apical] 71 Pulse Rate [Finger] Pulse Rate from SpO2 Sensor Pulse Rhythm [Apical] Regular Pulse Strength [Apical] Normal Respiratory Rate 18 Respiratory Effort / Characteristics Non-Labored Spontaneous Non-Labored Respiratory Depth Normal Normal Respiratory Pattern Regular Regular Blood Pressure Blood Pressure [Right Arm] 123/79 Blood Pressure Mean Blood Pressure Mean [Right Arm] 93 Blood Pressure Position [Right Arm] Lying Pulse Oximetry 96 Oxygen Delivery Method Room Air Room Air EWS Level of Consciousness - Last Result Spontaneously Alert EWS Temperature - Last Result 37 EWS Respiratory Rate - Last Result 18 EWS Oxygen Saturation - Last Result 96 EWS Oxygen in Use - Last Result No EWS Score 0 EWS Clinical Risk Low Risk 08/31/24 00:27 08/31/24 03:49 08/31/24 03:50 Temperature 36.6 C Temperature Source Oral Pulse Rate Pulse Rate [Apical] 64 Pulse Rate [Finger] Pulse Rate from SpO2 Sensor Pulse Rhythm [Apical] Regular Pulse Strength [Apical] Normal Respiratory Rate 18 Respiratory Effort / Characteristics Non-Labored Respiratory Depth Normal Respiratory Pattern Regular Blood Pressure Blood Pressure [Right Arm] 150/86 H Blood Pressure Mean Blood Pressure Mean [Right Arm] 107 Blood Pressure Position [Right Arm] Lying Pulse Oximetry 96 Oxygen Delivery Method Room Air EWS Level of Consciousness - Last Result Spontaneously Alert Spontaneously Alert EWS Temperature - Last Result 37 36.6 EWS Respiratory Rate - Last Result 18 18 EWS Oxygen Saturation - Last Result 96 96 EWS Oxygen in Use - Last Result No No EWS Score 0 0 EWS Clinical Risk Low Risk Low Risk 08/31/24 04:11 08/31/24 07:35 08/31/24 07:36 Temperature 37.3 C Temperature Source Oral Pulse Rate Pulse Rate [Apical] Pulse Rate [Finger] 63 Pulse Rate from SpO2 Sensor Pulse Rhythm [Apical] Pulse Strength [Apical] Respiratory Rate 18 Respiratory Effort / Characteristics Respiratory Depth Respiratory Pattern Blood Pressure Blood Pressure [Right Arm] 120/75 Blood Pressure Mean Blood Pressure Mean [Right Arm] 90 Blood Pressure Position [Right Arm] Pulse Oximetry 97 Oxygen Delivery Method Room Air EWS Level of Consciousness - Last Result Spontaneously Alert Spontaneously Alert EWS Temperature - Last Result 36.6 37.3 EWS Respiratory Rate - Last Result 18 18 EWS Oxygen Saturation - Last Result 96 97 EWS Oxygen in Use - Last Result No No EWS Score 0 0 EWS Clinical Risk Low Risk Low Risk 08/31/24 07:36 08/31/24 11:45 08/31/24 11:46 Temperature 37.2 C Temperature Source Oral Pulse Rate 65 Pulse Rate [Apical] Pulse Rate [Finger] 63 Pulse Rate from SpO2 Sensor Pulse Rhythm [Apical] Pulse Strength [Apical] Respiratory Rate 18 Respiratory Effort / Characteristics Respiratory Depth Respiratory Pattern Blood Pressure Blood Pressure [Right Arm] 121/75 Blood Pressure Mean Blood Pressure Mean [Right Arm] 90 Blood Pressure Position [Right Arm] Pulse Oximetry 98 Oxygen Delivery Method Room Air EWS Level of Consciousness - Last Result Spontaneously Alert EWS Temperature - Last Result 37.2 EWS Respiratory Rate - Last Result 18 EWS Oxygen Saturation - Last Result 98 EWS Oxygen in Use - Last Result No EWS Score 0 EWS Clinical Risk Low Risk Laboratory Data 08/31/24 12:28 08/31/24 12:28 Lab Results 08/30/24 08/30/24 08/30/24 Range/Units 07:25 12:42 13:00 WBC 14.20 H (4.8-10.8) K/ul RBC 4.97 (4.70-6.10) M/uL Hgb 14.8 (14.0-18.0) g/dl Hct 43.8 (42.0-52.0) % MCV 88.1 (80.0-100.0) fL MCH 29.8 (25.0-34.0) pg MCHC 33.8 (32.0-36.0) g/dL RDW Std Deviation 39.8 (36.4-46.3) fL RDW Coeff of Emily 12.3 (11.5-14.5) % Plt Count 155 (130-400) K/uL MPV 11.8 (9.4-12.4) fL Immature Gran % (Auto) 0.4 % Neut % (Auto) 87.8 % Lymph % (Auto) 5.1 % [place] % (Auto) 5.6 % Eos % (Auto) 1.0 % Baso % (Auto) 0.1 % Neut # (Auto) 12.47 H (1.40-6.50) K/uL Lymph # (Auto) 0.72 L (1.20-3.40) K/uL [place] # (Auto) 0.80 H (0.11-0.59) K/uL Eos # (Auto) 0.14 (0.00-0.50) K/uL Baso # (Auto) 0.02 (0.00-0.20) K/uL Immature Gran # (Auto) 0.05 (0.01-0.20) K/uL Sodium 140 (136-145) mmol/L Potassium 4.3 (3.5-5.1) mmol/L Chloride 107 (98-107) mmol/L Carbon Dioxide 25 (21-32) mmol/L Anion Gap 8 (3-11) BUN 23 (6-23) mg/dl Creatinine 1.23 (0.6-1.4) mg/dl Est Cr Clr Drug Dosing 60.4 ml/min eGFR 63.55 BUN/Creatinine Ratio 18.7 (10-20) Glucose 131 H (70-99(Fasting)) mg/dl Calcium 9.7 (8.6-10.3) mg/dl Magnesium 2.0 (1.7-2.4) mg/dl Total Bilirubin 0.8 (0.2-1.0) mg/dl AST 19 (13-39) U/L ALT 14 (7-52) U/L Alkaline Phosphatase 109 H (34-104) U/L Troponin I High Sens < 2.3 5.9 (0-20) pg/ml B-Natriuretic Peptide (0-100) pg/ml Total Protein 8.3 (6.0-8.3) gm/dl Albumin 4.6 (3.4-5.0) gm/dl Globulin 3.7 (2.5-4.0) gm/dl Albumin/Globulin Ratio 1.2 (0.9-2) TSH 2.921 (0.300-4.500) uIu/ml Urine Color Yellow Urine Appearance Clear (Clear) Urine pH 5.0 (4.5-7.5) Ur Specific [place] 1.015 (1.000-1.030) Urine Protein 1+ H (Negative) Urine Glucose (UA) Negative (Negative) Urine Ketones Negative (Negative) Urine Blood Negative (Negative) Urine Nitrite Negative (Negative) Urine Bilirubin Negative (Negative) Urine Urobilinogen Negative (Negative) Ur Leukocyte Esterase Negative (Negative) Urine RBC 0-2 (0-2) /hpf Urine WBC 0-5 (0-5) /hpf Ur Epithelial Cells 3-5 H (0-2) /hpf Urine Bacteria None Seen (None Seen) Urine Mucus Present A (None Prsent) Nasal Screen MRSA (PCR) (Negative) Stl C. cayetanensis PCR (NotDetected) Stool Rotavirus A PCR (NotDetected) Stl Adenov F 40/41 PCR (NotDetected) Stool Astrovirus (PCR) (NotDetected) Stool Campylobacter PCR (NotDetected) Stool Cryptosporidium PCR (NotDetected) Stl E.coli Shiga Tox PCR (NotDetected) Stl Enterotoxigenic E PCR (NotDetected) Stool EPEC (PCR) (NotDetected) Stool EAEC (PCR) (NotDetected) Stl E. histolytica PCR (NotDetected) Stool Giardia Lamblia PCR (NotDetected) Stool Salmonella PCR (NotDetected) Stool Sapovirus (PCR) (NotDetected) Stl P. shigelloides PCR (NotDetected) Stl Shigella/EIEC PCR (NotDetected) St Y.enterocolitica PCR (NotDetected) Stool Vibrio (PCR) (NotDetected) Stl Vibrio cholerae PCR (NotDetected) Stl Norovirus GI/GII PCR (NotDetected) 08/30/24 08/30/24 08/30/24 Range/Units 16:50 20:50 Unknown WBC (4.8-10.8) K/ul RBC (4.70-6.10) M/uL Hgb (14.0-18.0) g/dl Hct (42.0-52.0) % MCV (80.0-100.0) fL MCH (25.0-34.0) pg MCHC (32.0-36.0) g/dL RDW Std Deviation (36.4-46.3) fL RDW Coeff of Emily (11.5-14.5) % Plt Count (130-400) K/uL MPV (9.4-12.4) fL Immature Gran % (Auto) % Neut % (Auto) % Lymph % (Auto) % [place] % (Auto) % Eos % (Auto) % Baso % (Auto) % Neut # (Auto) (1.40-6.50) K/uL Lymph # (Auto) (1.20-3.40) K/uL [place] # (Auto) (0.11-0.59) K/uL Eos # (Auto) (0.00-0.50) K/uL Baso # (Auto) (0.00-0.20) K/uL Immature Gran # (Auto) (0.01-0.20) K/uL Sodium (136-145) mmol/L Potassium (3.5-5.1) mmol/L Chloride (98-107) mmol/L Carbon Dioxide (21-32) mmol/L Anion Gap (3-11) BUN (6-23) mg/dl Creatinine (0.6-1.4) mg/dl Est Cr Clr Drug Dosing ml/min eGFR BUN/Creatinine Ratio (10-20) Glucose (70-99(Fasting)) mg/dl Calcium (8.6-10.3) mg/dl Magnesium (1.7-2.4) mg/dl Total Bilirubin (0.2-1.0) mg/dl AST (13-39) U/L ALT (7-52) U/L Alkaline Phosphatase (34-104) U/L Troponin I High Sens (0-20) pg/ml B-Natriuretic Peptide 42 (0-100) pg/ml Total Protein (6.0-8.3) gm/dl Albumin (3.4-5.0) gm/dl Globulin (2.5-4.0) gm/dl Albumin/Globulin Ratio (0.9-2) TSH (0.300-4.500) uIu/ml Urine Color Urine Appearance (Clear) Urine pH (4.5-7.5) Ur Specific [place] (1.000-1.030) Urine Protein (Negative) Urine Glucose (UA) (Negative) Urine Ketones (Negative) Urine Blood (Negative) Urine Nitrite (Negative) Urine Bilirubin (Negative) Urine Urobilinogen (Negative) Ur Leukocyte Esterase (Negative) Urine RBC (0-2) /hpf Urine WBC (0-5) /hpf Ur Epithelial Cells (0-2) /hpf Urine Bacteria (None Seen) Urine Mucus (None Prsent) Nasal Screen MRSA (PCR) Negative (Negative) Stl C. cayetanensis PCR Not Detected (NotDetected) Stool Rotavirus A PCR Not Detected (NotDetected) Stl Adenov F 40/41 PCR Not Detected (NotDetected) Stool Astrovirus (PCR) Not Detected (NotDetected) Stool Campylobacter PCR Not Detected (NotDetected) Stool Cryptosporidium PCR Not Detected (NotDetected) Stl E.coli Shiga Tox PCR Not Detected (NotDetected) Stl Enterotoxigenic E PCR Not Detected (NotDetected) Stool EPEC (PCR) Not Detected (NotDetected) Stool EAEC (PCR) Not Detected (NotDetected) Stl E. histolytica PCR Not Detected (NotDetected) Stool Giardia Lamblia PCR Not Detected (NotDetected) Stool Salmonella PCR Not Detected (NotDetected) Stool Sapovirus (PCR) Not Detected (NotDetected) Stl P. shigelloides PCR Not Detected (NotDetected) Stl Shigella/EIEC PCR Not Detected (NotDetected) St Y.enterocolitica PCR Not Detected (NotDetected) Stool Vibrio (PCR) Not Detected (NotDetected) Stl Vibrio cholerae PCR Not Detected (NotDetected) Stl Norovirus GI/GII PCR DETECTED A* (NotDetected) Administered Medications Olanzapine (Olanzapine 5 Mg Tablet) 5 mg PO HS CYRUS Stop: 09/29/24 20:59 Last Admin: 08/30/24 20:39 Dose: 5 mg Documented By: JEREMY Paroxetine HCl (Paroxetine Hcl 10 Mg Tab) 30 mg PO DAILY CYRUS Stop: 09/30/24 08:59 Last Admin: 08/31/24 09:30 Dose: 30 mg Documented By: SUKHJINDER Discontinued Medications Sodium Chloride (Nss) 1,000 mls @ 125 mls/hr IV .Q8H CYRUS Stop: 08/31/24 08:14 Last Infusion: 08/30/24 18:42 Dose: Infused Documented By: Admin: 08/30/24 16:15 Dose: 125 mls/hr Documented By: Infusion: 08/30/24 16:15 Dose: Infused Documented By: Admin: 08/30/24 08:42 Dose: 125 mls/hr Documented By: MMF Sodium Chloride (Nss) 500 mls @ 999 mls/hr IV .Q31M ONE Stop: 08/30/24 08:31 Last Infusion: 08/30/24 08:42 Dose: Infused Documented By: Admin: 08/30/24 08:03 Dose: 999 mls/hr Documented By: MMF Sodium Chloride (Nss) 500 mls @ 999 mls/hr IV .Q31M ONE Stop: 08/30/24 15:38 Last Infusion: 08/30/24 15:58 Dose: Infused Documented By: Admin: 08/30/24 15:21 Dose: 999 mls/hr Documented By: SISSY Sodium Chloride (Nss) 1,000 mls @ 65 mls/hr IV .[id number] CYRUS Stop: 08/31/24 19:14 Last Infusion: 08/31/24 12:03 Dose: Infused Documented By: Admin: 08/30/24 20:39 Dose: 65 mls/hr Documented By: JEREMY Ioversol (Optiray 320 125ml) 112 ml IV ONCE ONE Stop: 08/30/24 08:43 Last Admin: 08/30/24 08:43 Dose: 112 ml Documented By: ADELINE Imaging Data Radiologist's Impression: Chest X-Ray 08/30/24 07:21 XR chest 1V portable CLINICAL HISTORY: syncope COMPARISON STUDY: None FINDINGS: Single view portable chest demonstrates no acute cardiopulmonary process. There is no airspace opacity or pleural effusion. There is no atelectasis or pneumothorax. The heart, mediastinum, pulmonary vascularity are unremarkable. The patient's right arm overlies the right lower thorax. There is mild elevation of the right hemidiaphragm most likely an eventration. IMPRESSION: No acute process ACT 112: Negative or not required by law. Electronically signed by: Elsi Valdivia M.D. 08/30/2024 8:34 AM Chest CTA 08/30/24 08:39 CT angio chest PE protocol CT DOSE: 1069.39 mGy.cm HISTORY: syncope. TECHNIQUE: Multiple CTA images of the chest were obtained after the intravenous administration of 112 ml Optiray. Coronal and sagittal MIPS were obtained from the axial data set and were submitted for review. All measurements were obtained according to NASCET criteria. A dose lowering technique was utilized adhering to the principles of ALARA. COMPARISON STUDY: PET/CT dated 10/26/2023 FINDINGS: There is no evidence of pulmonary embolism. There is mild right hilar adenopathy. There is also subcarinal adenopathy. 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 This lesion has increased in size since the prior PET/CT of 10/26/2023 where it measured 2.[address] number is greater than I would expect from a enteric cyst or paraesophageal duplication cyst. There is no aortic aneurysm. There is no pericardial effusion. The heart is enlarged with left ventricular hypertrophy. There is no evidence of pneumothorax. There is a small focus of airspace opacity in the lingular segment of the left upper lobe which may be fibrotic or due to subsegmental atelectasis. Old left rib fractures are identified. The upper abdominal images are noncontributory. IMPRESSION: No evidence of pulmonary embolus. Cardiomegaly with left ventricular hypertrophy. Small airspace opacity versus scarring or atelectasis in the lingular segment left upper lobe. Enlarging right paraesophageal mass indenting the posterior margin of the left atrium. While this lesion was not the tracer avid on prior PET/CT, its enlarging size and the CT number inconsistent with a simple cyst raises concern for a potential malignancy. Benign lesion such as a duplication cyst containing internal debris or a venous varix are also in the differential diagnosis. This lesion could be better investigated with a transesophageal ultrasound to include a biopsy depending upon the sonographic findings. ACT 112: Negative or not required by law. The above report was generated using voice recognition software. It may contain grammatical, syntax or spelling errors. Electronically signed by: Elsi Valdivia M.D. 08/30/2024 11:[address] 08/30/24 08:39 CT head/brain wo con CLINICAL HISTORY: fall, syncope, posterior CHI. TECHNIQUE: Multiple axial CT images of the head were obtained without contrast. Sagittal and coronal reconstructions were done. A dose lowering technique was utilized adhering to the principles of ALARA. CT DOSE: 1069.39mGy*cm COMPARISON: None FINDINGS: There is no intra-axial or extra-axial fluid collection, hemorrhage, or mass. The ventricles and sulci are age-appropriate with no midline shift. There is no focal brain attenuation abnormality of significance. There is no skull fracture identified. IMPRESSION: Negative noncontrast head CT ACT 112: Negative or not required by law. The above report was generated using voice recognition software. It may contain grammatical, syntax or spelling errors. Electronically signed by: Elsi Valdivia M.D. 08/30/2024 11:07 AM Discharge Plan Visit Data Chief Complaint: Syncope Stated Complaint: SYNCOPE, FALL ED Provider: Horacio Mcgarry Discharge Problem: Syncope and collapse, CHI (closed head injury) Patient Disposition: Admitted As Inpatient Discharge Instructions Interventions: ED Discharge Assessment Last Done: 08/30/24 17:34
[2024-08-30] MEDS: SODIUM CHLORIDE 0.9% 500 ML IV ONE ×2 (08:03→15:21)
[2024-08-30 08:06] LABS: Albumin Level 4.6 gm/dl (3.4-5.0); Anion Gap 8 (3-11); Bilirubin,Total 0.8 mg/dl (0.2-1.0); Calcium 9.7 mg/dl (8.6-10.3); Carbon Dioxide 25 mmol/L (21-32); Chloride 107 mmol/L (98-107); Potassium 4.3 mmol/L (3.5-5.1); Sodium 140 mmol/L (136-145); Troponin I High Sensitivity < 2.3 pg/ml (0-20)
[2024-08-30 08:12] LABS: Alanine Aminotransferase 14 U/L (7-52); Albumin Globulin Ratio 1.2 (0.9-2); Alkaline Phosphatase 109 U/L (34-104); Aspartate Aminotransferase 19 U/L (13-39); BUN Creatinine Ratio 18.7 (10-20); Blood Urea Nitrogen 23 mg/dl (6-23); Creatinine Clr Calc Pharmacy 60.4 ml/min; Globulin 3.7 gm/dl (2.5-4.0); Glucose 131 mg/dl (70-99(Fasting)); Total Protein 8.3 gm/dl (6.0-8.3)
[2024-08-30 08:15] LABS: Thyroid Stimulating Hormone 2.921 uIu/ml (0.300-4.500)
--- NOTE | 2024-08-30 08:36 | XRay Report ---
XR chest 1V portable CLINICAL HISTORY: syncope COMPARISON STUDY: None FINDINGS: Single view portable chest demonstrates no acute cardiopulmonary process. There is no airsp [place] opacity or pleural effusion. There is no atelectasis or pneumothorax. The heart, mediastinum, pul monary vascularity are unremarkable. The patient's right arm overlies the right lower thorax. There i s mild elevation of the right hemidiaphragm most likely an eventration. IMPRESSION: No acute process ACT 112: Negative or not required by law. Electronically signed by: Elsi Valdivia M.D. 08/30/2024 8:34 AM
[2024-08-30] MEDS: SODIUM CHLORIDE 0.9% 1,000 ML IV SCH ×2 (08:42→20:39)
[2024-08-30] MEDS: OPTIRAY 320 125ml IV ONE (08:43)
--- NOTE | 2024-08-30 11:09 | CT Scan Report ---
CT head/brain wo con CLINICAL HISTORY: fall, syncope, posterior CHI. TECHNIQUE: Multiple axial CT images of the head were obtained without contrast. Sagittal and coronal reconstructions were done. A dose lowering technique was utilized adhering to the principles of BRITTANEY Shepard. CT DOSE: 1069.39mGy*cm COMPARISON: None FINDINGS: There is no intra-axial or extra-axial fluid collection, hemorrhage, or mass. The ventricle s and sulci are age-appropriate with no midline shift. There is no focal brain attenuation abnormalit y of significance. There is no skull fracture identified. IMPRESSION: Negative noncontrast head CT ACT 112: Negative or not required by law. The above report was generated using voice recognition software. It may contain grammatical, syntax o r spelling errors. Electronically signed by: Elsi Valdivia M.D. 08/30/2024 11:07 AM
--- NOTE | 2024-08-30 11:32 | CT Scan Report ---
CT angio chest PE protocol CT DOSE: 1069.39 mGy.cm HISTORY: syncope. TECHNIQUE: Multiple CTA images of the chest were obtained after the intravenous administration of 112 ml Optiray. Coronal and sagittal MIPS were obtained from the axial data set and were submitted for review. All measurements were obtained according to NASCET criteria. A dose lowering technique was u tilized adhering to the principles of ALARA. COMPARISON STUDY: PET/CT dated 10/26/2023 FINDINGS: There is no evidence of pulmonary embolism. There is mild right hilar adenopathy. There is also subcarinal adenopathy. An addition, there is a 3.1 cm paraesophageal mass located just to the ri ght of the esophagus and impinging upon the posterior margin of the left atrium. This lesion has incr eased in size since the prior PET/CT of 10/26/2023 where it measured 2.[address] number is greater than I would expect from a enteric cyst or paraesophageal duplication cyst. There is no aortic aneury sm. There is no pericardial effusion. The heart is enlarged with left ventricular hypertrophy. There is no evidence of pneumothorax. There is a small focus of airspace opacity in the lingular segm ent of the left upper lobe which may be fibrotic or due to subsegmental atelectasis. Old left rib fractures are identified. The upper abdominal images are noncontributory. IMPRESSION: No evidence of pulmonary embolus. Cardiomegaly with left ventricular hypertrophy. Small airspace opacity versus scarring or atelectasis in the lingular segment left upper lobe. Enlarging right paraesophageal mass indenting the posterior margin of the left atrium. While this les ion was not the tracer avid on prior PET/CT, its enlarging size and the CT number inconsistent with a simple cyst raises concern for a potential malignancy. Benign lesion such as a duplication cyst cont aining internal debris or a venous varix are also in the differential diagnosis. This lesion could be better investigated with a transesophageal ultrasound to include a biopsy depending upon the sonogra [facility] findings. ACT 112: Negative or not required by law. The above report was generated using voice recognition software. It may contain grammatical, syntax o r spelling errors. Electronically signed by: Elsi Valdivia M.D. 08/30/2024 11:29 AM
[2024-08-30 13:07] LABS: Appearance Urine Clear (Clear); Bilirubin Urine Negative (Negative); Blood Urine Negative (Negative); Color Urine Yellow; Glucose Urine UA Negative (Negative); Ketones Urine Negative (Negative); Leukocyte Esterase Urine Negative (Negative); Nitrite Urine Negative (Negative); Protein Urine 1+ (Negative); Specific Gravity Urine 1.015 (1.000-1.030); Urobilinogen Urine Negative (Negative)
[2024-08-30 13:15] LABS: Bacteria Urine None Seen (None Seen); Mucus Urine Present (None Prsent); RBC Urine 0-2 /hpf (0-2); WBC Urine 0-5 /hpf (0-5)
--- NOTE | 2024-08-30 13:39 | Electrocardiogram Report ---
Test Reason : Blood Pressure : */* mmHG Vent. Rate : 64 BPM Atrial Rate : 64 BPM P-R Int : 124 ms QRS Dur : 106 ms QT Int : 420 ms P-R-T Axes : -29 86 42 degrees QTcB Int : 433 ms Normal sinus rhythm Incomplete right bundle branch block Borderline ECG No previous ECGs available Confirmed by Robert Boland ([id number]) on 08/30/2024 1:39:12 PM Referred By: Confirmed By: Robert Boland
--- NOTE | 2024-08-30 16:38 | History & Physical Report ---
Date of Service August 30, 2024 Assessment & Plan (1) Syncope and collapse: (2) Diarrhea: (3) Status post prostatectomy: (4) Adjustment disorder with mixed anxiety and depressed mood: (5) Incontinence: Plan 68 year old male inmate at [facility] with PMH significant for prostate cancer s/p prostatectomy in December 2023 who presented to the ED after a syncopal episode today. Syncope and collapse Orthostatic vitals positive in the ED EKG and labs unremarkable besides slight leukocytosis at [address] and CXR negative CT chest revealed cardiomegaly with LVH - BNP negative CT chest also revealed enlarging right paraesophageal mass concerning for pos sible malignancy - consulted Oncology Plan -MIVF at 65mL/hr -Orthostatics daily -Obtain echo given cardiomegaly on CT chest -Encourage slow transition of movements Diarrhea, incontinence Patient had additional episode of non-bloody diarrhea in the ED Stool PCR ordered s/p prostatectomy Per records, patient follows with [id number] for surveillance Adjustment disorder with mixed anxiety and depressed mood Continue olanzapine and paroxetine per home dosing DVT Prophylaxis: TEDs Code Status: FULL CODE - As per discussion at bedside with the patient. PCP: NICK Melara Disposition: admit to med/surg telemetry Patient seen in collaboration with Dr Frye. Please see addendum. I spent a total of 75 minutes coordinating, documenting and providing care for this patient excluding time spent in the performance of separately billed services or time spent by another provider/QHP. Admission and Anticipated Discharge Date Admission Date: 08/30/2024 History of Present Illness Chief Complaint: syncope Primary Care Provider: [facility] 68 year old male inmate at [facility] with PMH significant for prostate cancer s/p prostatectomy in December 2023 who presented to the ED after a syncopal episode today. He reports he went to the toilet to have a bowel movement and felt extremely weak when trying to stand up after and then passed out while trying to stand. He did hit his head and had incontinence of diarrhea on the floor. He reports he was in his normal state of health prior to the syncopal episode. He denies dizziness, lightheadedness, fevers, chills, cough, cold symptoms, chest pain, SOB, abdominal pain, dysuria. He notes he feels weak. Allergies Allergy/AdvReac Type Severity Reaction Status Date / Time No Known Drug Allergies Allergy Unknown Verified 08/30/24 09:41 Home Medications Medication Instructions Recorded Confirmed Type olanzapine 5 mg tablet 5 mg PO HS 04/25/23 08/30/24 History paroxetine HCl 10 mg tablet 30 mg PO DAILY 04/25/23 08/30/24 History leuprolide (pediatric 6 month) 45 45 mg IM UD 01/02/24 08/30/24 History mg (pediatric 6 month) intramuscular syringe kit (Lupron Depot-Ped) Past Med/Surg History Problem List (Updated 08/30/24 @ 19:07 by ANGE Lopez) Incontinence Diarrhea Adjustment disorder with mixed anxiety and depressed mood Status post prostatectomy Syncope and collapse (Acute) Medical History (Updated 08/30/24 @ 19:07 by ANGE Lopez) Prostate cancer Surgical History (Updated 08/30/24 @ 19:02 by ANGE Lopez) Surgical history unknown Family History Father No problems noted. Mother Breast cancer Brother No problems noted. Sister No problems noted. Son No problems noted. 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 Preferred Language: Italian Communication Ability: Effective Visual Impairment: Limited Hearing Ability: Normal Armature Repairer Required: No Beliefs That Will Affect Care: None Current Living Situation: Other Current Living Situation Comment: inmate Feels Safe at Home: Yes Diet: regular during the past year weight has: remained stable Assistive Devices: None Review of Systems Review of Systems: All systems reviewed & are unremarkable except as noted in HPI & below Physical Exam Physical Exam: General/Psych: WD/WN, sitting up in bed, NAD, conversing easily, euthymic affect Head: normocephalic, atraumatic Eyes: normal inspection, PERRL, conjunctivae pink, anicteric sclerae ENT: external ear and nose normal, oropharynx normal Neck: normal visual inspection, trachea midline, no thyromegaly Respiratory: normal respiratory effort, lungs clear to auscultation, no wheeze/rales/rhonchi, no accessory muscle use Cardiovascular: regular rate and rhythm, no murmur/rub/gallop, no JVD Extremities: no cyanosis or clubbing, normal peripheral pulses, no BLE edema Abdomen/GI: normal bowel sounds, soft, nontender, no hepatosplenomegaly Neurologic/MSK: A+Ox3, motor strength 5/5, moves all extremities Skin: no rashes, normal color, warm and dry Results & Data Results & Data Vital Signs (Past 12 Hours) Vital Signs Temp Pulse Pulse Resp BP BP Pulse Ox 08/30/24 16:16 71 08/30/24 16:00 144/81 H 08/30/24 15:56 65 19 99 08/30/24 15:44 68 23 99 08/30/24 15:05 103/78 08/30/24 15:05 103/78 08/30/24 15:00 86 17 139/76 95 08/30/24 14:57 74 24 99 08/30/24 14:30 76 25 H 97 08/30/24 14:30 128/77 08/30/24 14:30 128/77 08/30/24 14:30 128/77 08/30/24 14:30 128/77 08/30/24 14:30 128/77 08/30/24 14:27 73 27 H 97 08/30/24 14:00 137/84 08/30/24 13:45 81 25 H 96 08/30/24 13:33 76 24 96 08/30/24 13:30 138/84 08/30/24 13:30 138/84 08/30/24 13:27 84 19 96 08/30/24 13:12 77 19 98 08/30/24 13:00 130/77 08/30/24 13:00 130/77 08/30/24 13:00 130/77 08/30/24 13:00 76 24 130/77 97 08/30/24 12:54 75 22 97 08/30/24 12:30 127/78 08/30/24 12:30 127/78 08/30/24 12:30 75 23 96 08/30/24 12:11 83 08/30/24 12:08 94/69 L 08/30/24 12:08 94/69 L 08/30/24 12:08 94/69 L 08/30/24 12:03 70 22 97 08/30/24 12:00 131/76 08/30/24 12:00 131/76 08/30/24 12:00 131/76 08/30/24 11:45 69 24 98 08/30/24 11:39 70 24 98 08/30/24 11:18 66 24 99 08/30/24 11:04 144/84 H 08/30/24 11:00 69 24 144/84 H 93 08/30/24 10:30 72 21 97 08/30/24 10:30 119/79 08/30/24 10:30 119/79 08/30/24 10:21 68 20 97 08/30/24 10:12 64 97 08/30/24 10:00 68 97 08/30/24 10:00 128/74 08/30/24 09:36 63 23 98 08/30/24 09:30 128/89 08/30/24 09:24 68 30 H 98 08/30/24 09:12 67 24 97 08/30/24 09:00 71 24 119/71 98 08/30/24 08:54 67 19 98 08/30/24 08:45 65 21 97 08/30/24 08:30 151/77 H 08/30/24 08:18 66 98 08/30/24 08:15 63 24 98 08/30/24 08:14 61 08/30/24 07:54 63 17 97 08/30/24 07:48 65 23 97 08/30/24 07:30 67 18 98 08/30/24 07:30 108/70 08/30/24 07:30 108/70 08/30/24 07:26 67 21 100 08/30/24 07:24 63 16 96 08/30/24 07:20 123/71 08/30/24 07:20 123/71 08/30/24 07:20 100 08/30/24 07:20 36.6 C 63 22 123/71 98 O2 Del Method 08/30/24 16:16 08/30/24 16:00 08/30/24 15:56 08/30/24 15:44 08/30/24 15:05 08/30/24 15:05 08/30/24 15:00 Room Air 08/30/24 14:57 08/30/24 14:30 08/30/24 14:30 08/30/24 14:30 08/30/24 14:30 08/30/24 14:30 08/30/24 14:30 08/30/24 14:27 08/30/24 14:00 08/30/24 13:45 08/30/24 13:33 08/30/24 13:30 08/30/24 13:30 08/30/24 13:27 08/30/24 13:12 08/30/24 13:00 08/30/24 13:00 08/30/24 13:00 08/30/24 13:00 Room Air 08/30/24 12:54 08/30/24 12:30 08/30/24 12:30 08/30/24 12:30 08/30/24 12:11 08/30/24 12:08 08/30/24 12:08 08/30/24 12:08 08/30/24 12:03 08/30/24 12:00 08/30/24 12:00 08/30/24 12:00 08/30/24 11:45 08/30/24 11:39 08/30/24 11:18 08/30/24 11:04 08/30/24 11:00 Room Air 08/30/24 10:30 08/30/24 10:30 08/30/24 10:30 08/30/24 10:21 08/30/24 10:12 08/30/24 10:00 08/30/24 10:00 08/30/24 09:36 08/30/24 09:30 08/30/24 09:24 08/30/24 09:12 08/30/24 09:00 Room Air 08/30/24 08:54 08/30/24 08:45 08/30/24 08:30 08/30/24 08:18 08/30/24 08:15 08/30/24 08:14 08/30/24 07:54 08/30/24 07:48 08/30/24 07:30 08/30/24 07:30 08/30/24 07:30 08/30/24 07:26 Room Air 08/30/24 07:24 08/30/24 07:20 08/30/24 07:20 08/30/24 07:20 Room Air 08/30/24 07:20 Room Air Laboratory Results Short CBC 08/30/24 Range/Units 07:25 WBC 14.20 H (4.8-10.8) K/ul Hgb 14.8 (14.0-18.0) g/dl Hct 43.8 (42.0-52.0) % Plt Count 155 (130-400) K/uL BMP 08/30/24 07:25 Sodium 140 Potassium 4.3 Chloride 107 Carbon Dioxide 25 BUN 23 Creatinine 1.23 Glucose 131 H Calcium 9.7 Liver Function 08/30/24 Range/Units 07:25 Total Bilirubin 0.8 (0.2-1.0) mg/dl AST 19 (13-39) U/L ALT 14 (7-52) U/L Alkaline Phosphatase 109 H (34-104) U/L Albumin 4.6 (3.4-5.0) gm/dl Urine 08/30/24 Range/Units 12:42 Urine Color Yellow Urine Appearance Clear (Clear) Urine pH 5.0 (4.5-7.5) Ur Specific [place] 1.015 (1.000-1.030) Urine Protein 1+ H (Negative) Urine Glucose (UA) Negative (Negative) I have independently reviewed and interpreted patient's admitting labs including CBC, CMP, mag, troponin, BNP, TSH Diagnostic Findings Chest X-Ray 08/30/24 07:21 XR chest 1V portable CLINICAL HISTORY: syncope COMPARISON STUDY: None FINDINGS: Single view portable chest demonstrates no acute cardiopulmonary process. There is no airspace opacity or pleural effusion. There is no atelectasis or pneumothorax. The heart, mediastinum, pulmonary vascularity are unremarkable. The patient's right arm overlies the right lower thorax. There is mild elevation of the right hemidiaphragm most likely an eventration. IMPRESSION: No acute process ACT 112: Negative or not required by law. Electronically signed by: Elsi Valdivia M.D. 08/30/2024 8:34 AM Chest CTA 08/30/24 08:39 CT angio chest PE protocol CT DOSE: 1069.39 mGy.cm HISTORY: syncope. TECHNIQUE: Multiple CTA images of the chest were obtained after the intravenous administration of 112 ml Optiray. Coronal and sagittal MIPS were obtained from the axial data set and were submitted for review. All measurements were obtained according to NASCET criteria. A dose lowering technique was utilized adhering to the principles of ALARA. COMPARISON STUDY: PET/CT dated 10/26/2023 FINDINGS: There is no evidence of pulmonary embolism. There is mild right hilar adenopathy. There is also subcarinal adenopathy. 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 This lesion has increased in size since the prior PET/CT of 10/26/2023 where it measured [address] number is greater than I would expect from a enteric cyst or paraesophageal duplication cyst. There is no aortic aneurysm. There is no pericardial effusion. The heart is enlarged with left ventricular hypertrophy. There is no evidence of pneumothorax. There is a small focus of airspace opacity in the lingular segment of the left upper lobe which may be fibrotic or due to subsegmental atelectasis. Old left rib fractures are identified. The upper abdominal images are noncontributory. IMPRESSION: No evidence of pulmonary embolus. Cardiomegaly with left ventricular hypertrophy. Small airspace opacity versus scarring or atelectasis in the lingular segment left upper lobe. Enlarging right paraesophageal mass indenting the posterior margin of the left atrium. While this lesion was not the tracer avid on prior PET/CT, its enlarging size and the CT number inconsistent with a simple cyst raises concern for a potential malignancy. Benign lesion such as a duplication cyst containing internal debris or a venous varix are also in the differential diagnosis. This lesion could be better investigated with a transesophageal ultrasound to include a biopsy depending upon the sonographic findings. ACT 112: Negative or not required by law. The above report was generated using voice recognition software. It may contain grammatical, syntax or spelling errors. Electronically signed by: Elsi Valdivia M.D. 08/30/2024 11:[address] 08/30/24 08:39 CT head/brain wo con CLINICAL HISTORY: fall, syncope, posterior CHI. TECHNIQUE: Multiple axial CT images of the head were obtained without contrast. Sagittal and coronal reconstructions were done. A dose lowering technique was utilized adhering to the principles of ALARA. CT DOSE: 1069.39mGy*cm COMPARISON: None FINDINGS: There is no intra-axial or extra-axial fluid collection, hemorrhage, or mass. The ventricles and sulci are age-appropriate with no midline shift. There is no focal brain attenuation abnormality of significance. There is no skull fracture identified. IMPRESSION: Negative noncontrast head CT ACT 112: Negative or not required by law. The above report was generated using voice recognition software. It may contain grammatical, syntax or spelling errors. Electronically signed by: Elsi Valdivia M.D. 08/30/2024 11:07 AM Medications Administered Current Inpatient Medications Acetaminophen (Acetaminophen 325 Mg Tab) 650 mg PO Q4H PRN PRN Reason: pain/fever Stop: 09/29/24 17:56 Olanzapine (Olanzapine 5 Mg Tablet) 5 mg PO HS CYRUS Stop: 09/29/24 20:59 Paroxetine HCl (Paroxetine Hcl 10 Mg Tab) 30 mg PO DAILY CYRUS Stop: 09/30/24 08:59 ECG Additional Comments: I have independently reviewed and interpreted patient's admitting EKG which revealed: NSR at rate of 64bpm with incomplete right BBB Code Status & VTE Plan Code Status Full Code VTE Prophylaxis Plan VTE Prophylaxis will be ordered: Yes Supervising Physician Co-Signing Physician Notes 68-year-old maleWith PMH of prostate cancer status post prostatectomy December 2023 presented to the ED with complaint of syncopal episode today. Per patient, he was done moving bowels and cleaned himself up and was trying to stand up when he felt weak legs and started having diarrhea and then fell on the floor with more diarrhea surrounding him, he briefly lost consciousness and hit his head. Patient had further 1 episodes of diarrhea while in the hospital and another formed bowel movement after that. Patient denies any fever/flulike illness or sore throat or cough or chest pain. Patient did report lightheadedness and nausea just prior to fall. Denies funny sensation in chest or palpitation prior to fall event. Orthostatic vitals done in the ED was positive. Labs and imagings were reviewed, WBC elevated but about his baseline. Otherwise electrolytes and renal functions appear normal, troponin x 2 negative. TSH WNL. UA negative for UTI. EKG with normal sinus rhythm, no acute ST or T abnormalities. CXR and CT head with no acute finding. CTA chest negative for PE, likely atelectasis in the lingula segment of left upper lobe [patient denied any sore throat or cough or chest pain]. Also noted was enlarging right paraesophageal mass indenting the posterior margin of the left atrium. Likely vasovagal syncope, continue with q shift ortho vitals, patient advised for slow transition during change in position. Continue with IV fluids at 65 mL an hour, patient received 1 L IV fluid in the ED. Abnormal CTA chest, oncology consult for further guidance given history of prostate cancer. Will get echo as patient denies history of heart failure and is noted to have cardiomegaly on chest imaging. On exam: GENERAL: Alert and oriented x3. NAD, on RA. HEENT: No pallor, no icterus. Pupils equal, round and reactive to light. Oral mucosa moist. NECK: No JVD, no neck masses. HEART: S1 and S2 heard. Regular rate and rhythm. No murmur, no gallop. RESPIRATORY SYSTEM: Normal AP diameter. No accessory muscle use. No wheezing, no crackles. ABDOMEN: Soft, bowel sounds present, nontender, no distention. CENTRAL NERVOUS SYSTEM: No facial droop. Speech is clear. Obeys simple commands. Moves extremities. EXTREMITIES: No edema, no erythema seen. I have seen and examined the patient and have discussed the case with the provider above. I agree with the assessment and plan as stated. Time spent: 30 min
[2024-08-30] MEDS ORDERED: ACETAMINOPHEN 325 MG TAB PO PRN (17:57)
[2024-08-30] MEDS: OLANZapine 5 MG TABLET PO SCH (20:39)
[2024-08-30 23:04] LABS: Adenovirus F 40/41 PCR Not Detected (NotDetected); Astrovirus PCR Not Detected (NotDetected); Campylobacter PCR Not Detected (NotDetected); Cryptosporidium PCR Not Detected (NotDetected); Cyclospora cayetanensis PCR Not Detected (NotDetected); Entamoeba histolytica PCR Not Detected (NotDetected); Enteroaggregative E.coli(EAEC) Not Detected (NotDetected); Enteropathogenic E.coli (EPEC) Not Detected (NotDetected); Enterotoxigenic E.coli (ETEC) Not Detected (NotDetected); Giardia lamblia PCR Not Detected (NotDetected); Plesiomonas shigelloides PCR Not Detected (NotDetected); Rotavirus A PCR Not Detected (NotDetected); Salmonella PCR Not Detected (NotDetected); Sapovirus PCR Not Detected (NotDetected); Shiga-like Toxin E.coli (STEC) Not Detected (NotDetected); Shigella/Enteroinvasive E.coli Not Detected (NotDetected); Vibrio cholerae PCR Not Detected (NotDetected); Vibrio species PCR Not Detected (NotDetected); Yersinia enterocolitica PCR Not Detected (NotDetected)
[2024-08-30 23:09] LABS: Norovirus GI/GII PCR DETECTED (NotDetected)
[2024-08-31] MEDS: PARoxetine HCL 10 MG TAB PO SCH (09:30)
--- NOTE | 2024-08-31 12:04 | Hospitalist Progress Note ---
Date of Service August 31, 2024 Assessment & Plan (1) Vasovagal syncope: (2) Gastroenteritis due to norovirus: (3) Mediastinal mass: (4) Adjustment disorder with mixed anxiety and depressed mood: (5) History of prostate cancer: Plan Patient presented to the emergency room with syncope most likely vagal syncope when having a bowel movement. Bowel movements increased and more significant due to norovirus infection. Echocardiogram pending, LVH noted on CTA chest. Continue to monitor stools. Pressures have stabilized with IV hydration Advance diet Patient also discovered to have a paraesophageal mass that is increasing in size over the past 10 months. Consult GI for further recommendations Continue other outpatient medications Monitor orthostatic vitals daily Admission and Anticipated Discharge Date Admission Date: August 30, 2024 Subjective Patient reports feeling better. No lightheadedness or dizziness. Tolerating his diet. Stools have been fluctuating. He was not aware of paraesophageal mass that was seen on PET scan in October 2023 Physical Exam Physical Exam: Constitutional: Alert, nontoxic HEENT: Mucous membranes moist. Lungs: Clear to auscultation, decreased, no wheezes rales or rhonchi CV: S1-S2, regular Abdomen: Soft, nontender, nondistended Extremities: No significant edema Neuro: No focal deficits Psych: Cooperative, normal mood Results & Data Results & Data Vital Signs (Past 12 Hours) Vital Signs Temp Pulse Pulse Pulse Resp BP Pulse Ox 08/31/24 11:45 37.2 C 63 18 121/75 98 08/31/24 07:36 65 08/31/24 07:35 37.3 C 63 18 120/75 97 08/31/24 03:49 36.6 C 64 18 150/86 H 96 O2 Del Method 08/31/24 11:45 Room Air 08/31/24 07:36 08/31/24 07:35 Room Air 08/31/24 03:49 Room Air Diagnostic Findings Reviewed imaging, laboratory and diagnostic studies. Pertinent findings as sonido krishna. Stool BioFire positive for norovirus
[2024-08-31 13:33] LABS: Hematocrit (blood only) 33.4 % (42.0-52.0); Hemoglobin 11.5 g/dl (14.0-18.0); Mean Corpuscular Hemoglobin 30.3 pg (25.0-34.0); Mean Corpuscular Hgb Conc 34.4 g/dL (32.0-36.0); Mean Corpuscular Volume 87.9 fL (80.0-100.0); Mean Platelet Volume 12.1 fL (9.4-12.4); Platelet Count 120 K/uL (130-400); RDW Coefficient of Variation 12.4 % (11.5-14.5); RDW Standard Deviation 39.8 fL (36.4-46.3); White Blood Count 4.82 K/ul (4.8-10.8)
[2024-08-31 13:50] LABS: Creatinine Clr Calc Pharmacy 86.3 ml/min
[2024-08-31 13:52] LABS: BUN Creatinine Ratio 19.8 (10-20); Calcium 8.5 mg/dl (8.6-10.3); Potassium 3.9 mmol/L (3.5-5.1)
--- NOTE | 2024-08-31 14:09 | Gastrointestinal Consultation ---
Date of Consultation August 31, 2024 Assessment & Plan (1) Mediastinal mass: -Patient with a paraesophageal mass of unclear etiology. Would advise outpatient EUS for further evaluation. Supervising Physician Co-Signing Physician Notes I examined the patient and reviewed patient's chart , laboratory data and imaging studies. I agree with with assessment and plan of care as suggested by advanced practice provider. Paraesophageal mass, concern for malignancy. Outpatient endoscopic ultrasound will be arranged through the GI office. Stool is positive for norovirus. Continue supportive measures. History of Present Illness Reason for Consultation: Paraesophageal mass Attending Physician: Cal Rosado DO History of Present Illness Patient is a 68 yo male who presented to the hospital from senior living for syncope. While admitted under hospitalist services, he had a CTA that demonstrated a paraesophageal mass. Patient notes a history of smoking. No pertinent family history. No dysphagia, heartburn, abdominal pain, or unintentional weight loss. Allergies Allergy/AdvReac Type Severity Reaction Status Date / Time No Known Drug Allergies Allergy Unknown Verified 08/30/24 09:41 Home Medications Medication Instructions Recorded Confirmed Type olanzapine 5 mg tablet 5 mg PO HS 04/25/23 08/30/24 History paroxetine HCl 10 mg tablet 30 mg PO DAILY 04/25/23 08/30/24 History leuprolide (pediatric 6 month) 45 45 mg IM UD 01/02/24 08/30/24 History mg (pediatric 6 month) intramuscular syringe kit (Lupron Depot-Ped) Patient History Medical History Prostate cancer Surgical History Surgical history unknown Family History Father No problems noted. Mother Breast cancer Brother No problems noted. Sister No problems noted. Son No problems noted. 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 Preferred Language: Persian Communication Ability: Effective Visual Impairment: Limited Hearing Ability: Normal Linoleum Layer Helper Required: No Beliefs That Will Affect Care: None Current Living Situation: Other Current Living Situation Comment: inmate Feels Safe at Home: Yes Diet: regular during the past year weight has: remained stable Assistive Devices: None Review of Systems Constitutional: no weight loss Gastrointestinal: no abdominal pain and no dysphagia Hematologic / Lymphatic: no unexplained weight loss Physical Exam Gastrointestinal (Abdomen): normal bowel sounds, soft, nontender, no hepatosplenomegaly Results & Data Vital Signs (Past 12 Hours) Vital Signs Temp Pulse Pulse Pulse Resp BP Pulse Ox 08/31/24 11:45 37.2 C 63 18 121/75 98 08/31/24 07:36 65 08/31/24 07:35 37.3 C 63 18 120/75 97 08/31/24 03:49 36.6 C 64 18 150/86 H 96 O2 Del Method 08/31/24 11:45 Room Air 08/31/24 07:36 08/31/24 07:35 Room Air 08/31/24 03:49 Room Air PG Care Time/CCT Total # of Minutes Spent Total Time Spent with Patient: Total time spent is greater than 50% in coordination of care (as documented) at patient's floor/unit and/or counseling patient: Coding Level of Care Code 92156 IN/OBS CONSULT LVL 4,60M Diagnoses Mediastinal mass J98.59
--- NOTE | 2024-08-31 17:25 | Oncology Consultation ---
Date of Consultation August 31, 2024 Assessment & Plan (1) Mediastinal mass: Recommend GI evaluation at a biopsy. Once the biopsy-proven diagnosis is available I will have further recommendations for the patient. GI is already on board, appreciate their recommendations. Plan Thank you for this interesting oncological consult. A total of 60 minutes was spent in counseling, coronation care, review of prior records History of Present Illness Reason for Consultation: Paraesophageal mass Attending Physician: Cal Rosado, DO History of Present Illness the patient is a very pleasant 68-year-old male, who is a resident of [facility] , currently admitted to the hospital. On his CT angiogram was found to have paraesophageal mass which has been evaluated previously with a PET scan. He reports no significant symptoms today no fever chills or night sweats. Appetite is good, the patient is not losing any weight. No bleeding or bruising. Allergies Allergy/AdvReac Type Severity Reaction Status Date / Time No Known Drug Allergies Allergy Unknown Verified 08/30/24 09:41 Home Medications Medication Instructions Recorded Confirmed Type olanzapine 5 mg tablet 5 mg PO HS 04/25/23 08/30/24 History paroxetine HCl 10 mg tablet 30 mg PO DAILY 04/25/23 08/30/24 History leuprolide (pediatric 6 month) 45 45 mg IM UD 01/02/24 08/30/24 History mg (pediatric 6 month) intramuscular syringe kit (Lupron Depot-Ped) loperamide 2 mg capsule 2 mg PO Q6H PRN loose stool #10 09/01/24 Rx caps Patient History Medical History Prostate cancer Surgical History Surgical history unknown Family History Father No problems noted. Mother Breast cancer Brother No problems noted. Sister No problems noted. Son No problems noted. 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 Preferred Language: Armenian Communication Ability: Effective Visual Impairment: Limited Hearing Ability: Normal Lace Inspector Required: No Beliefs That Will Affect Care: None Current Living Situation: Other Current Living Situation Comment: inmate Feels Safe at Home: Yes Diet: regular during the past year weight has: remained stable Assistive Devices: None Review of Systems Review of Systems: All systems reviewed & are unremarkable except as noted in HPI & below Constitutional: as per Subjective / HPI Eyes: as per Subjective / HPI Ear, Nose, Mouth, Throat: as per Subjective / HPI Respiratory: as per Subjective / HPI Cardiovascular: as per Subjective / HPI Gastrointestinal: as per Subjective / HPI Genitourinary: + as per Subjective / HPI Musculoskeletal: as per Subjective / HPI Integumentary: as per Subjective / HPI Neurologic: as per Subjective / HPI Psychiatric: as per Subjective / HPI Endocrine: as per Subjective / HPI Hematologic / Lymphatic: as per Subjective / HPI Allergy / Immunological: as per Subjective / HPI Physical Exam Constitutional: WD/WN, vitals as above Eyes: PERRL, conjunctivae normal, anicteric sclerae ENMT: external ear and nose normal, oropharynx normal Neck: trachea midline, no thyromegaly Respiratory: normal respiratory effort, lungs clear to auscultation Cardiovascular: RRR, no murmur, no edema Gastrointestinal (Abdomen): normal bowel sounds, soft, nontender, no hepatosplenomegaly Musculoskeletal: no cyanosis or clubbing, extremities motor strength 5/5 Skin: no rashes, warm and dry Neurologic: patellar DTR's 2+ bilat, sensation intact Psychiatric: A+Ox3, euthymic affect Genitourinary: no testicular masses, no penis abnormality Lymphatic: no cervical or axillary lymphadenopathy Results & Data Vital Signs (Past 12 Hours) Vital Signs Temp Pulse Pulse Resp BP Pulse Ox O2 Del Method 08/31/24 15:58 76 08/31/24 11:45 37.2 C 63 18 121/75 98 Room Air 08/31/24 07:36 65 08/31/24 07:35 37.3 C 63 18 120/75 97 Room Air
[2024-08-31] MEDS: LOPERAMIDE HCL 2 MG CAP PO PRN (20:43)
[2024-09-01 07:47] VITALS: RESP 16
[2024-09-01 11:15] VITALS: BP 106/66; TEMP 98.4; O2SAT 98
[2024-09-01 11:40] VITALS: PULSE 64
--- NOTE | 2024-09-01 11:41 | Discharge Summary ---
Discharge Summary Date of Service September 01, 2024 Principal Dx & Hospital Course #1 = Principal Diagnosis (1) Vasovagal syncope: (2) Gastroenteritis due to norovirus: (3) Mediastinal mass: (4) Adjustment disorder with mixed anxiety and depressed mood: (5) History of prostate cancer: Plan Patient presented from [facility]al [facility] with acute syncopal event while defecating on the toilet. In the emergency room he was noted to be orthostatic. He also reports a history of intermittent diarrhea. Patient was admitted to the hospital. Given fluid resuscitation. There was no significant arrhythmias on telemetry monitoring. Patient did test positive for norovirus. However, his stools are really well-controlled and resolved while here in the hospital. Patient's history is very consistent with a vagal syncope in the setting of norovirus gastroenteritis and in the process of defecating. In the process of his workup in the ER patient also was noted to have a paraesophageal mass on CT imaging. Review his previous imaging this was present on PET scanning in October 2023. It did not light up as a potential cancerous lesion. 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 Gastroenterology recommended patient have outpatient EGD with EUS. Echocardiogram was performed. Showed normal ejection fraction of 60 to 65% with no significant valvular disease and normal LV function. On the day of discharge patient was eating and drinking well. No lightheadedness or dizziness in this. He was ambulating to the bathroom without difficulties. Notified provider at the correctional facility of the patient's need for outpatient GI evaluation and possible EGD with the US. Will return to the correctional facility for his ongoing care. Notes For Next Care Provider Outpatient GI consultation for EGD/EUS Medication Changes From Visit Imodium as needed Admission HPI Per Admitting Provider 68 year old male inmate at [facility] with PMH significant for prostate cancer s/p prostatectomy in December 2023 who presented to the ED after a syncopal episode today. He reports he went to the toilet to have a bowel movement and felt extremely weak when trying to stand up after and then passed out while trying to stand. He did hit his head and had incontinence of diarrhea on the floor. He reports he was in his normal state of health prior to the syncopal episode. He denies dizziness, lightheadedness, fevers, chills, cough, cold symptoms, chest pain, SOB, abdominal pain, dysuria. He notes he feels weak. Admission Exam Per Admitting Provider See H&P Discharge Exam Constitutional: Alert HEENT: Mucous membranes moist. Lungs: Clear to auscultation, decreased, no wheezes rales or rhonchi CV: S1-S2, regular Abdomen: Soft, nontender, nondistended, normal active bowel sounds Extremities: No significant edema Neuro: No focal deficits Psych: Cooperative, normal mood Updated Medication List Medication Instructions Recorded Confirmed Type olanzapine 5 mg tablet 5 mg PO HS 04/25/23 08/30/24 History paroxetine HCl 10 mg tablet 30 mg PO DAILY 04/25/23 08/30/24 History leuprolide (pediatric 6 month) 45 45 mg IM UD 01/02/24 08/30/24 History mg (pediatric 6 month) intramuscular syringe kit (Lupron Depot-Ped) loperamide 2 mg capsule 2 mg PO Q6H PRN loose stool #10 09/01/24 Rx caps Hospital Stay Data Consultations 08/30/24 15:42 ED Decision to Admit Stat 08/30/24 17:57 Consult Oncology Routine 08/31/24 09:49 Consult Gastroenterology Routine Diagnostic Imagining Performed 08/30/24 08:39 CT angio chest PE protocol Stat CT head/brain wo con Stat Reviewed imaging, laboratory and diagnostic studies. Pertinent findings as below. 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
== END 2024-09-01 12:55 | DRG 312 ==
LOC: ED 07:15 → 2W 07:15 → SUATTDRO 16:29 → 2W 17:34